=== PATIENT | female | born 1990 | race Hispanic/Latino ===

== ENCOUNTER 2022-08-06 10:51 | Emergency (ER) | payer OTHER, MEDICARE ==
[~2022-08-06] VITALS: Ht 162.6 cm; Wt 131.5 kg
[2022-08-06 10:57] VITALS: BP 132/79
[2022-08-06 11:38] LABS: APPEARANCE,URINE CLOUDY (CLEAR); BILIRUBIN,URINE NEGATIVE (NEGATIVE); COLOR,URINE LIGHT-YELLOW (YELLOW); GLUCOSE, URINE (UA) NEGATIVE (NEGATIVE); KETONES,URINE NEGATIVE (NEGATIVE); LEUKOCYTE ESTERASE ,URINE NEGATIVE Leu/uL (NEGATIVE); NITRATE,URINE NEGATIVE (NEGATIVE); OCCULT BLOOD,URINE NEGATIVE (NEGATIVE); PROTEIN,URINE 50 mg/dL (NEGATIVE); UROBILINOGEN,URINE 0.2 mg/dL (0.2-1.0)
[2022-08-06 11:43] LABS: HCG,QUALITATIVE URINE NEGATIVE (NEGATIVE)
[2022-08-06] MEDS: IBUPROFEN 600 MG TABLET PO ONE (12:14)
== END 2022-08-06 13:01 | disposition home or self-care (01) ==
LOC: EDH 10:51
DX: S06.0X0A Concussion without loss of consciousness, initial encounter (principal); S00.81XA Abrasion of other part of head, initial encounter; Y04.0XXA Assault by unarmed brawl or fight, initial encounter; Y93.89 Activity, other specified; Y92.89 Other specified places as the place of occurrence of the external cause; Y99.8 Other external cause status
CPT/HCPCS: 70450; 81003; 81025